=== PATIENT | male | born 1955 | race African-American/Black ===

== ENCOUNTER 2017-02-09 07:49 | Emergency (ER) | payer MEDICAID ==
[~2017-02-09] VITALS: Ht 182.9 cm; Wt 63.0 kg
[2017-02-09 08:14] VITALS: BP 125/71
[2017-02-09] MEDS ORDERED: ACETAMINOPHEN 500MG TABLET PO ONE (08:15)
== END 2017-02-09 09:16 | disposition home or self-care (01) ==
LOC: ER 08:00
DX: M25.561 Pain in right knee (principal); M25.562 Pain in left knee; G89.29 Other chronic pain; M54.9 Dorsalgia, unspecified; J45.909 Unspecified asthma, uncomplicated; Z87.891 Personal history of nicotine dependence; Z88.6 Allergy status to analgesic agent; Z98.890 Other specified postprocedural states
CPT/HCPCS: 99283

== ENCOUNTER 2017-03-03 07:45 | Emergency (ER) | payer MEDICAID ==
[~2017-03-03] VITALS: Ht 180.3 cm; Wt 63.0 kg
[2017-03-03 08:42] VITALS: BP 121/90
[2017-03-03] MEDS ORDERED: TRAMADOL 50MG TABLET PO ONE (08:45)
== END 2017-03-03 10:19 | disposition home or self-care (01) ==
LOC: ER 09:06
DX: S30.0XXA Contusion of lower back and pelvis, initial encounter (principal); J45.909 Unspecified asthma, uncomplicated; F17.210 Nicotine dependence, cigarettes, uncomplicated; Z88.6 Allergy status to analgesic agent; W01.0XXA Fall on same level from slipping, tripping and stumbling without subsequent striking against object, initial encounter; Y93.89 Activity, other specified; Y92.811 Bus as the place of occurrence of the external cause; Y99.8 Other external cause status
CPT/HCPCS: 72100; 99284

== ENCOUNTER 2017-03-15 07:21 | Emergency (ER) | payer MEDICAID ==
[~2017-03-15] VITALS: Ht 180.3 cm; Wt 63.0 kg
[2017-03-15 10:10] VITALS: BP 132/78
== END 2017-03-15 12:11 | disposition home or self-care (01) ==
LOC: ER 08:12
DX: M25.551 Pain in right hip (principal); M54.5 Low back pain; F17.200 Nicotine dependence, unspecified, uncomplicated; J45.909 Unspecified asthma, uncomplicated; F20.9 Schizophrenia, unspecified; Z88.6 Allergy status to analgesic agent
CPT/HCPCS: 73522; 99284